=== PATIENT | female | born 1945 | race Hispanic/Latino ===

== ENCOUNTER 2017-03-06 07:08 | Outpatient (CLI) | payer MEDICARE | END 2017-03-06 07:09 | disposition home or self-care (01) | LOC: BICULT 07:08 | PROVIDERS: ATTEND Family Medicine | DX: E04.1 Nontoxic single thyroid nodule (principal) | CPT/HCPCS: 76536 ==

== ENCOUNTER 2017-05-21 10:50 | Day surgery (SDC) | payer MEDICARE ==
[2017-05-20 11:04] VITALS: BMI 32.5
[~2017-05-21 10:50] MED LIST: FLU VACC TS2017-18 (>65YR) 0.5 ML SYRINGE IM ONE; Lidocaine 1% PF 5 ML VIAL ONE; Sodium Bicarbonate 2.4 MEQ/5 ML ONE
[2017-05-21 11:31] VITALS: BP 184/79; TEMP 98.3
--- NOTE | 2017-05-21 15:01 | ULT ---
ULTRASOUND THYROID FINE NEEDLE ASPIRATION WITH ULTRASOUND GUIDANCE: COMPARISON: Outside facility ultrasound 03/16/17. FINDINGS: The patient was brought to the ultrasound suite. All questions were answered. The patient's neck was prepped and draped in normal sterile fashion. There is revisualization of the 1.2 cm left interpolar nodule. Approximately 3 mm of buffered Lidocaine was instilled into the superficial and deep soft tissues for anesthesia. Using a 25-gauge needle, a total of 4 passes were obtained through the nodule. The pat ient tolerated the procedure well without complication. Samples were given to pathology. IMPRESSION: Technically successful left thyroid nodule fine needle aspiration. POS: [facility]
== END 2017-05-21 11:45 | disposition home or self-care (01) ==
LOC: ULT 10:50
PROVIDERS: ATTEND Family Medicine
PROC: 0G9G3ZX Drainage of Left Thyroid Gland Lobe, Percutaneous Approach, Diagnostic (ICD-10-PCS; principal; 2017-05-21)
DX: E04.1 Nontoxic single thyroid nodule (principal); I10 Essential (primary) hypertension; Z86.73 Personal history of transient ischemic attack (TIA), and cerebral infarction without residual deficits
CPT/HCPCS: 10022; 76942; 88173; J2001

== ENCOUNTER 2021-07-20 13:58 | Emergency (ER) | payer MEDICARE | END 2021-07-20 15:31 | disposition home or self-care (01) | LOC: ERS 13:58 | DX: M54.50 Low back pain, unspecified (principal); R20.2 Paresthesia of skin; I10 Essential (primary) hypertension | CPT/HCPCS: 99283 ==